=== PATIENT | male | born 1935 | race Caucasian/White ===

== ENCOUNTER 2021-08-05 15:17 | Emergency (ER) | payer OTHER ==
[~2021-08-05] VITALS: Ht 175.3 cm; Wt 86.2 kg
[2021-08-05 15:30] VITALS: BP_SYST 187
--- NOTE | 2021-08-05 15:30 | NUR ---
Pt. bib with c/o abd. pain, N/V, occasional loose stool for 3 days, pt now experiencing weakness and dizziness
--- NOTE | 2021-08-05 15:30 | NUR ---
Patient to ER bed 3 for evaluation. Side rails up. [facility].
--- NOTE | 2021-08-05 15:37 | NUR ---
ER at bedside examining patient.
[2021-08-05] MEDS ORDERED: ONDANSETRON HCL 4 MG/2 ML VIAL IVP ONE (15:45)
[2021-08-05] MEDS ORDERED: MORPHINE 2 MG/ML INJ. SYRINGE IVP ONE (15:45)
--- NOTE | 2021-08-05 15:59 | NUR ---
Patient transported to radiology via wheelchair, accompanied by staff.
[2021-08-05 16:10] LABS: BASOPHILS # (AUTO) 0.2 K/uL (0.0-0.2); BASOPHILS % (AUTO) 3.4 % (0.0-2.0); EOSINOPHILS % (AUTO) 0.2 % (0.0-4.0); HEMATOCRIT 40.9 % (36-54); HEMOGLOBIN 13.9 g/dL (14.0-18.0); LYMPHOCYTES # (AUTO) 1.6 K/uL (1.0-5.5); LYMPHOCYTES % (AUTO) 22.1 % (20.5-51.5); MEAN CORPUSCULAR HEMOGLOBIN 33 pg (27-31); MEAN CORPUSCULAR HGB CONC 34 % (32-36); MEAN CORPUSCULAR VOLUME 96 fL (79.0-98.0); MONOCYTES # (AUTO) 0.4 K/uL (0.0-1.0); MONOCYTES % (AUTO) 5.4 % (1.7-9.3); NEUTROPHILS # (AUTO) 4.9 K/uL (1.8-7.7); NEUTROPHILS % (AUTO) 68.9 % (40.0-70.0); PLATELET COUNT (AUTO) 215 K/uL (130-430); RED BLOOD CELL COUNT(AUTO) 4.25 MIL/uL (4.2-6.2); RED CELL DISTRIBUTION WIDTH 14.7 % (9.0-15.0); WHITE BLOOD COUNT (AUTO) 7.1 K/uL (4.8-10.8)
--- NOTE | 2021-08-05 16:26 | NUR ---
morphine not pushed, drawn and charted as went to give pt. allergic, notified pharmacy wasted
[2021-08-05 16:29] LABS: ANION GAP 9 (5-15); CHLORIDE 104 mmol/L (98-107); GLUCOSE 126 mg/dL (70-99); POTASSIUM 3.8 mmol/L (3.5-5.1); SODIUM SERUM 140 mmol/L (136-145); UREA NITROGEN, BLOOD 18 mg/dL (8-21)
[2021-08-05 16:39] LABS: ALANINE AMINOTRANSFERASE 58 U/L (12-78); ALBUMIN 3.9 g/dL (3.4-4.8); ASPARTATE AMINOTRANSFERASE 29 U/L (10-37); LIPASE 91 U/L (73-393); TOTAL BILIRUBIN 0.5 mg/dL (0.0-1.0)
[2021-08-05 16:40] LABS: PROTHROMBIN TIME 10.5 SECS (9.5-12.5)
--- NOTE | 2021-08-05 17:00 | NUR ---
pt. feels much better post zofran, no nausea
[2021-08-05] MEDS ORDERED: NS 500 ML IV ONE (18:30)
[2021-08-05 18:46] LABS: BILIRUBIN,URINE 1+ (NEGATIVE); BLOOD, URINE 3+ (NEGATIVE); CLARITY/URINE SL CLOUDY (CLEAR); GLUCOSE,URINE NEGATIVE (NEGATIVE); KETONES,URINE TRACE (NEGATIVE); LEUKOCYTE ESTERASE ,URINE NEGATIVE (NEGATIVE); NITRITE, URINE NEGATIVE (NEGATIVE); PH,URINE 5.5 (5.0-8.0); PROTEIN URINE 2+ (NEGATIVE); UROBILINOGEN,URINE 0.2 (0.2-1.0)
--- NOTE | 2021-08-05 19:02 | NUR ---
Received report from SARA Martin and continue care of patient.
[2021-08-05 19:07] LABS: COLOR,URINE AMBER (YELLOW)
[2021-08-05 19:20] LABS: BACTERIA,URINE MODERATE /HPF (None Seen); MUCUS,URINE 1+ /LPF (None Seen); RBC,URINE >100 /HPF (0-3); URINE AMORPHOUS URATE 3+ /HPF (None Seen); WBC,URINE 0-3 /HPF (0-3)
[2021-08-05] MEDS ORDERED: ACET325T PO (19:23)
[2021-08-05] MEDS ORDERED: TAMS-11 PO (19:23)
[2021-08-05] MEDS ORDERED: ONDA4TAB5 PO (19:37)
[2021-08-05 19:43] VITALS: BP_SYST 120
--- NOTE | 2021-08-05 19:43 | NUR ---
Patient given written and verbal discharge instructions and verbalizes understanding. ER MD discussed with patient the results and treatment provided. Patient in stable condition. ID arm band removed. IV catheter removed intact and dressing applied, no active bleeding. Rx of Tylenol, Zofran and Flomax given. Patient educated on pain management and to follow up with PMD. Pain Scale 1/10. Opportunity for questions provided and answered. Medication side effect fact sheet provided.
== END 2021-08-05 19:43 | disposition home or self-care (01) ==
LOC: SED 15:17
DX: N20.0 Calculus of kidney (principal); Z20.822 Contact with and (suspected) exposure to COVID-19; Z88.5 Allergy status to narcotic agent; Z88.8 Allergy status to other drugs, medicaments and biological substances; Z79.899 Other long term (current) drug therapy
CPT/HCPCS: 36415; 74176; 76376; 80053; 81000; 83690; 84484; 85025; 85610; 85730; 87086; 87426; 93005; 96361; 96374; 96375; 99285; J2270; J2405; J7040